=== PATIENT | male | born 1980 | race African-American/Black ===

== ENCOUNTER 2019-07-05 16:20 | Emergency (ER) | payer SELFPAY ==
[~2019-07-05] VITALS: Ht 172.7 cm; Wt 90.7 kg
--- NOTE | 2019-07-05 16:32 | NUR ---
DONAL RA 878 "Back pain x1day. Homeless", TO ER BED 12, HOOKED TO MONITOR, PATIENT NOTED TACHYCARDIC AT 147 BPM. CHANGED TO HOSP GOWN, AWAITING MD WAY.
--- NOTE | 2019-07-05 16:51 | NUR ---
DR MARTINEZ AT BEDSIDE
[2019-07-05] MEDS ORDERED: IV NS 0.9% 1,000 ML BAG IV ONE (17:00)
[2019-07-05] MEDS ORDERED: KETOROLAC TROMETHAMINE INJ 30 MG/ML VIAL IV ONE (17:00)
[2019-07-05] MEDS ORDERED: ACETAMINOPHEN ES 500 MG TABLET PO ONE (17:00)
--- NOTE | 2019-07-05 17:07 | NUR ---
senior wind turbine technician at bedside
[2019-07-05 17:08] LABS: BASOPHILS # (AUTO) 0.1 /CMM (0.0-0.2); BASOPHILS % (AUTO) 0.7 % (0.0-2.0); EOSINOPHILS % (AUTO) 0.7 % (0.0-6.0); HEMATOCRIT 48 % (39-51); HEMOGLOBIN 16.1 g/dL (13.5-17.5); LYMPHOCYTES # (AUTO) 2.3 /CMM (0.8-4.8); LYMPHOCYTES % (AUTO) 26.6 % (20.0-44.0); MEAN CORPUSCULAR HGB CONC 34 g/dl (31.0-36.0); MEAN CORPUSCULAR VOLUME 90 fL (80-96); MONOCYTES # (AUTO) 0.7 /CMM (0.1-1.30); MONOCYTES % (AUTO) 8.7 % (2.0-12.0); NEUTROPHILS # (AUTO) 5.4 /CMM (1.8-8.9); NEUTROPHILS % (AUTO) 63.3 % (43.0-81.0); PLATELET COUNT (AUTO) 262 /CMM (150-450); RED BLOOD CELL COUNT(AUTO) 5.29 MIL/uL (4.5-6.0); WHITE BLOOD COUNT (AUTO) 8.5 K/uL (4.3-11.0)
[2019-07-05] MEDS ORDERED: ACETAMINOPHEN ES 500 MG TABLET ONE (17:08)
[2019-07-05] MEDS ORDERED: KETOROLAC TROMETHAMINE 15 MG/ML VIAL ONE (17:08)
[2019-07-05 17:33] LABS: ALBUMIN 4.6 g/dL (3.4-5.0); BILIRUBIN,DIRECT 0.1 mg/dL (0.0-0.2); BILIRUBIN,TOTAL 0.4 mg/dL (0.2-1.0); CALCIUM, SERUM 9.6 mg/dL (8.5-10.1); CREATININE 1.2 mg/dL (0.6-1.3); POTASSIUM 4.1 mmol/L (3.5-5.1); TOTAL PROTEIN, SERUM 8.6 g/dL (6.4-8.2)
[2019-07-05] MEDS ORDERED: LORAZEPAM INJ 2 MG/ML VIAL IV ONE (18:30)
[2019-07-05] MEDS ORDERED: LORAZEPAM INJ 2 MG/ML VIAL ONE (18:44)
--- NOTE | 2019-07-05 18:45 | NUR ---
PATIENT ASLEEP IN BED, EASILY ATOUSABLE BY VOICE. WILL CONTINUE TO MONITOR.
--- NOTE | 2019-07-05 21:18 | NUR ---
IV removed. Catheter intact and site benign. Pressure and 4x4 applied to site. No bleeding noted. Patient given written and verbal discharge instructions. Patient verbalizes understanding of instructions. Patient is ambulatory with steady gait. Refuses offer of group home placement. Patient given list of available shelters in surrounding area. Discharged patient in proper clothing. Name band removed.
[2019-07-05 21:19] VITALS: BP 96/58
== END 2019-07-05 21:22 | disposition home or self-care (01) ==
LOC: ER 16:23
DX: M54.5 Low back pain (principal); F20.9 Schizophrenia, unspecified; G89.29 Other chronic pain; R00.0 Tachycardia, unspecified; Z98.890 Other specified postprocedural states; Z91.14 Patient's other noncompliance with medication regimen
CPT/HCPCS: 36415; 72100; 80048; 80076; 85025; 86140; 93005 ×2; 96374; 96375; 99284; J1885; J2060; J7030